=== PATIENT | female | born 1970 | race Caucasian/White ===

== ENCOUNTER 2017-03-26 17:16 | Emergency (ER) | payer BC ==
[~2017-03-26] VITALS: Ht 160 cm; Wt 95.2 kg
[~2017-03-26 17:16] MED LIST: HYDR-3516 PO
[2017-03-26 17:26] VITALS: BP 139/84; PULSE 69; RESP 18; TEMP 98.1; O2SAT 98
--- NOTE | 2017-03-26 17:31 | PD ---
HPI Chief Complaint: Skin Problem Time Seen by Provider: 17:31 Travel History International Travel<30 days: No Contact w/Intl Traveler<30days: No Traveled to known affect area: No History of Present Illness HPI 47-year-old female presents the emergency department with tender erythematous swelling lesion to the anterior abdomen for the past couple of days. Patient states it started with what appeared to be an insect bite is gotten progressively more painful, swollen, and erythematous. There is been no spontaneous drainage. She has no history of MRSA in the past. Patient states pain is a 9 out of 10. She has no fever, chills, or other constitutional symptoms. Patient is allergic to aspirin, ibuprofen, metronidazole, Naprosyn, ofloxacin, penicillin, prednisone, and shrimp. PFSH Past Medical History Diminished Hearing: No Genitourinary: Yes (some urinary incontinence r/t prolapsed uterus) Herniated Disk: Yes (C6, C7) Reproductive: Yes (hx prolapsed uterus) Immunizations Current: Yes Migraines: Yes : 4 Para: 3 Miscarriage: 1 Ovarian Cysts: Yes Past Surgical History Gynecologic Surgery: Yes (LT OVARY REMOVED/"CYST IN UTERINE AREA WHERE OVARY USED TO BE") Tonsillectomy: Yes Family History Family Hypercholesterolemia: Yes (MOTHER) Social History Alcohol Use: No Tobacco Use: No (QUIT AGE 36) Substance Use: No Allergies-Medications (Allergen,Severity, Reaction): Coded Allergies: Aspirin (Verified Allergy, Severe, Anaphylaxis, 03/26/17) Ibuprofen (Verified Allergy, Severe, 03/26/17) Metronidazole (Verified Allergy, Severe, Anaphylaxis, 03/26/17) Naproxen (Verified Allergy, Severe, 03/26/17) Ofloxacin (Verified Allergy, Severe, Anaphylaxis, 03/26/17) Penicillin (Verified Allergy, Severe, Anaphylaxis, 03/26/17) Prednisone (Verified Allergy, Severe, TONGUE SWELLING, 03/26/17) Shrimp (Verified Allergy, Severe, ANAPHYLAXSIS, 03/26/17) Reported Meds & Prescriptions Reported Meds & Active Scripts Active Bactroban Topical (Mupirocin) 22 Gm Cream 1 Applic TOPICAL BID Bactrim DS (Sulfamethoxazole-Trimethoprim) 800-160 Mg Tab 1 Tab PO BID Review of Systems Except as stated in HPI: all other systems reviewed are Neg General / Constitutional: No: Fever Eyes: No: Visual changes HENT: No: Headaches Cardiovascular: No: Chest Pain or Discomfort Respiratory: No: Shortness of Breath Gastrointestinal: No: Abdominal Pain Genitourinary: No: Dysuria Musculoskeletal: No: Pain Skin: Positive Lesions (see history present illness), No Rash Neurologic: No: Weakness Psychiatric: No: Depression Endocrine: No: Polydipsia Hematologic/Lymphatic: No: Easy Bruising Physical Exam Narrative GENERAL: Patient is in mild to moderate distress. SKIN: Warm and dry. Normal color. Normal turgor. Patient has a indurated, erythematous, tender, warm, swollen lesion to the anterior abdomen just to the left of the umbilicus. There is pointing present. There is no spontaneous drainage. This appears consistent with abscess. It measures approximately 2 cm in diameter and raised surface approximately 1 cm. HEAD: Atraumatic. Normocephalic. EYES: Pupils equal and round. No scleral icterus. No injection or drainage. ENT: No nasal bleeding or discharge. Mucous membranes pink and moist. Pharynx is clear. Airway is patent. NECK: Trachea midline. Supple and nontender. CARDIOVASCULAR: Regular rate and rhythm. RESPIRATORY: No accessory muscle use. Clear to auscultation. Breath sounds equal bilaterally. MUSCULOSKELETAL: Extremities without clubbing, cyanosis, or edema. No obvious deformities. NEUROLOGICAL: Awake and alert. No obvious cranial nerve deficits. Motor grossly within normal limits. Five out of 5 muscle strength in the arms and legs. Normal speech. PSYCHIATRIC: Appropriate mood and affect; insight and judgment normal. Data Data Last Documented VS Vital Signs Date Time Temp Pulse Resp B/P Pulse Ox O2 Delivery O2 Flow Rate FiO2 03/26/17 17:26 98.1 69 18 139/84 98 Orders Lidocai-Epi 1%-1:100,000 Inj (Xylocaine- (03/26/17 17:45) Sulfamet-Trimeth Ds 800-160 Mg (Bactrim (03/26/17 17:45) Abscess Culture And Gram Stain (03/26/17 17:35) [facility] Medical Decision Making Medical Screen Exam Complete: Yes Emergency Medical Condition: Yes Differential Diagnosis Cellulitis. Abscess. MRSA. Narrative Course Patient is medically stable at time of exam. I&D of abscess is performed. See procedure note. Patient is given her first dose of Bactrim DS by mouth now. Packing is in place and cultures sent to the lab. Patient is continued on Bactrim DS twice a day 7 days. Patient is given Bactroban ointment to be used as needed twice a day. Patient is to take Tylenol [id number] as needed. Packing should be removed in 2 days. Procedures Procedure Narrative GENERAL: After the risks and benefits were discussed the following procedure was performed: INCISION AND DRAINAGE OF ABSCESS: The area was prepped and was sterilely draped. A subcutaneous wheal of 1% Xylocaine with Epi with a total number 2.5 mL was used to anesthetize the area. The area was properly anesthetized. A number 11 scalpel was used to make a 0.5-cm incision across the area of the abscess. Cultures were obtained. The abscess was drained an irrigated with normal saline. Quarter inch iodoform packing was placed in the wound. Sterile dressing applied. Patient advised to have packing removed in two days. Diagnosis Primary Impression: Abscess of skin of abdomen Referrals: Primary Care Physician Patient Instructions: Abscess Incision and Drainage (ED), General Instructions , MRSA (Methicillin Resistant Staphylococcus Aureus) (ED) Additional Instructions: Patient is given her first dose of Bactrim DS by mouth now. Packing is in place and cultures sent to the lab. Patient is continued on Bactrim DS twice a day 7 days. Patient is given Bactroban ointment to be used as needed twice a day. Patient is to take Tylenol [id number] as needed. Packing should be removed in 2 days. Med/Other Pt SpecificInfo: Prescription(s) given Scripts Mupirocin Topical (Bactroban Topical)22 Gm Cream1 Applic TOPICAL BID #1 TUBE Prov:Julián Wing MD 03/26/17 Sulfamethoxazole-Trimethoprim (Bactrim DS)800-160 Mg Tab1 Tab PO BID #14 TAB Prov:Julián Wing MD 03/26/17 Disposition: 01 DISCHARGE HOME Condition: Stable Kvng Green Mar 26, 2017 17:31
[2017-03-26] MEDS ORDERED: LIDOCAINE 1%/EPINEPHrine 1:100,000 SOLN 20 ML VIAL INFIL ONE (17:45)
[2017-03-26] MEDS ORDERED: SULFAMETHOXAZOLE-TRIMETHOPRIM DS 800-160 MG TAB PO ONE (17:45)
[2017-03-26] MEDS ORDERED: BACT800T5 PO (18:10)
[2017-03-26] MEDS ORDERED: MUPI2%T TOPICAL (18:10)
== END 2017-03-26 18:34 | disposition home or self-care (01) ==
LOC: PHEFT 17:16
DX: L02.211 Cutaneous abscess of abdominal wall (principal); B95.61 Methicillin susceptible Staphylococcus aureus infection as the cause of diseases classified elsewhere; Z87.448 Personal history of other diseases of urinary system; Z87.39 Personal history of other diseases of the musculoskeletal system and connective tissue; Z87.42 Personal history of other diseases of the female genital tract
CPT/HCPCS: 10061; 86403; 87070; 87186; 87205

== ENCOUNTER 2017-06-12 16:29 | Emergency (ER) | payer BC ==
[~2017-06-12] VITALS: Ht 160 cm; Wt 91.0 kg
[~2017-06-12 16:29] MED LIST changes: +BACT800T5 PO; -HYDR-3516 PO; +MUPI2%T TOPICAL
[2017-06-12 16:35] VITALS: BP 159/86; PULSE 69; RESP 16; TEMP 97.6; O2SAT 100
[2017-06-12] MEDS ORDERED: ZITHTAB PO (16:44)
[2017-06-12] MEDS ORDERED: VENTAER INH (16:44)
--- NOTE | 2017-06-12 16:46 | PD ---
HPI Chief Complaint: Cold / Flu Symptoms Time Seen by Provider: 16:39 Travel History International Travel<30 days: No Contact w/Intl Traveler<30days: No Traveled to known affect area: No History of Present Illness HPI Patient comes in complaining of cough and congestion ongoing for approximately 3 weeks. Patient denies any known fevers. Patient has been using over-the- counter medication for symptomatic relief. Patient states that she awoke today she felt like it was moving into her chest she is worried about turning into a pneumonia. Patient denies any nausea, vomiting, abdominal pain, chest pain, shortness of breath, back pain, headache, neck pain, or loss or change in bowel or bladder. Patient denies anything making it worse. Patient reports cough is occasionally productive with yellow phlegm. PFSH Past Medical History Diminished Hearing: No Genitourinary: Yes (some urinary incontinence r/t prolapsed uterus) Herniated Disk: Yes (C6, C7 c9) Reproductive: Yes (hx prolapsed uterus) Immunizations Current: Yes Migraines: Yes ?: Not LMP: 06/07/17 : 4 Para: 3 Miscarriage: 1 Ovarian Cysts: Yes Past Surgical History Gynecologic Surgery: Yes (LT OVARY REMOVED/"CYST IN UTERINE AREA WHERE OVARY USED TO BE") Tonsillectomy: Yes Family History Family Hypercholesterolemia: Yes (MOTHER) Social History Alcohol Use: No Tobacco Use: No (QUIT AGE 36) Substance Use: No Allergies-Medications (Allergen,Severity, Reaction): Coded Allergies: aspirin (Unverified Allergy, Severe, Anaphylaxis, 06/12/17) ibuprofen (Unverified Allergy, Severe, 06/12/17) metronidazole (Unverified Allergy, Severe, Anaphylaxis, 06/12/17) naproxen (Unverified Allergy, Severe, 06/12/17) ofloxacin (Unverified Allergy, Severe, Anaphylaxis, 06/12/17) penicillin G (Unverified Allergy, Severe, Anaphylaxis, 06/12/17) prednisone (Unverified Allergy, Severe, TONGUE SWELLING, 06/12/17) shrimp (Unverified Allergy, Severe, ANAPHYLAXSIS, 06/12/17) Reported Meds & Prescriptions Reported Meds & Active Scripts Active Ventolin Hfa 18 GM Inh (Albuterol Sulfate) 90 Mcg/Act Aer 2 Puff INH Q4-6H PRN Zithromax Z-Joel (Azithromycin) 250 Mg Dspk 250 Mg PO DIRECTED 500 MG (2 tabs) day 1, then 1 tab days 2-5. Bactroban Topical (Mupirocin) 22 Gm Cream 1 Applic TOPICAL BID Bactrim DS (Sulfamethoxazole-Trimethoprim) 800-160 Mg Tab 1 Tab PO BID Review of Systems Except as stated in HPI: all other systems reviewed are Neg Physical Exam Narrative GENERAL: Well-developed, overly nourished, in no acute distress, and non-ill appearing. SKIN: Focused skin assessment warm and dry. HEAD: Atraumatic. Normocephalic. EYES: Pupils equal and round. EOMI. No scleral icterus. No injection or drainage. ENT: No nasal bleeding or discharge. Mucous membranes pink and moist. Tympanic membranes pearly arias bilaterally. Tenderness bilateral maxillary facial sinuses. Posterior pharynx non-erythematous without exudate. Uvula is midline. NECK: Trachea midline. No cervical lymphadenopathy. Supple. No nuclear rigidity. CARDIOVASCULAR: Regular rate and rhythm. No murmur appreciated. RESPIRATORY: No accessory muscle use. No respiratory distress. Clear to auscultation. Breath sounds equal bilaterally. Hacking cough noted on exam. GASTROINTESTINAL: Abdomen soft, non-tender, nondistended, and no guarding. Hepatic and splenic margins not palpable. Normal bowel sounds 4. No pulsatile mass. MUSCULOSKELETAL: No obvious deformities. No clubbing. No cyanosis. No edema. Full range of motion. NEUROLOGICAL: Awake and alert. No obvious cranial nerve deficits. Motor grossly within normal limits. Normal speech. PSYCHIATRIC: Appropriate mood and affect; insight and judgment normal. Data Data Last Documented VS Vital Signs Date Time Temp Pulse Resp B/P (MAP) Pulse Ox O2 Delivery O2 Flow Rate FiO2 06/12/17 16:35 97.6 69 16 159/86 (110) 100 Orders Orders Ed Discharge Order (06/12/17 16:43) [facility] Medical Decision Making Medical Screen Exam Complete: Yes Emergency Medical Condition: Yes Differential Diagnosis Bronchitis, pneumonia, respiratory infection, sinusitis, other Narrative Course Patients symptom complex is consistent with bronchitis. The patient is non-ill appearing and is in no respiratory distress and comfortable. The patient moves air well and oxygen saturations are normal. There is no clinical evidence to suggest pneumonia at this time. Patient was offered x-rays but has declined at this time. Plan of care and management were discussed with the patient who agreed with plan. The patient was instructed to follow up with their physician and instructed to return if worsens, progressively worsening shortness of breath or difficulty breathing, persistent fever, chest pains or discomfort, inability to keep medication or fluids down with or without vomiting, or as needed. Patient in no obvious distress upon re-evaluation. Patient was asked if they wanted to speak to my attending, which the patient did not wish to do at this time. Any questions/concerns in reference to patient diagnosis/condition discussed and clarified prior to patient's discharge. Reinforced sheer importance of close follow up with patient's primary physician or primary care clinic. Instructed patient to return to ED immediately, if symptoms return/ worsen. Patient showed understanding of above instructions. Further instructions and recommendations were detailed in discharge paperwork. Patient ambulated without difficulty out of ED at discharge. Diagnosis Primary Impression: Bronchitis Patient Instructions: Acute Bronchitis (ED), General Instructions Additional Instructions: Follow-up with your primary care physician in 3-5 days for reevaluation. Take all medication as prescribed. Return to the emergency department if symptoms get worse. Med/Other Pt SpecificInfo: Prescription(s) given Scripts Albuterol 18 GM Inh (Ventolin Hfa 18 GM Inh) 90 Mcg/Act Aer 2 PUFF INH Q4-6H Y for COUGH, #1 INHALER 0 Refills Prov: Priscilla Black MD 06/12/17 Azithromycin (Zithromax Z-Joel) 250 Mg Dspk 250 MG PO DIRECTED for Infection, #1 DSPK 0 Refills 500 MG (2 tabs) day 1, then 1 tab days 2-5. Prov: Priscilla Black MD 06/12/17 Disposition: 01 DISCHARGE HOME Condition: Stable Nick Jane Jun 12, 2017 16:46
== END 2017-06-12 16:54 | disposition home or self-care (01) ==
LOC: PHEFT 16:29
DX: J20.9 Acute bronchitis, unspecified (principal); Z87.891 Personal history of nicotine dependence
CPT/HCPCS: 99284

== ENCOUNTER 2017-07-12 09:00 | Emergency (ER) | payer BC ==
[~2017-07-12] VITALS: Ht 160 cm; Wt 89.0 kg
[~2017-07-12 09:00] MED LIST changes: +VENTAER INH; +ZITHTAB PO
[2017-07-12 09:07] VITALS: BP 155/84; PULSE 64; RESP 16; TEMP 97.7; O2SAT 99
[2017-07-12] MEDS ORDERED: AZIT250T3 PO (10:00)
[2017-07-12] MEDS ORDERED: VENTAER INH (10:00)
[2017-07-12] MEDS ORDERED: BENZ100 PO (10:00)
--- NOTE | 2017-07-12 10:00 | PD ---
HPI Chief Complaint: Cold / Flu Symptoms Time Seen by Provider: 09:24 Travel History International Travel<30 days: No Contact w/Intl Traveler<30days: No Traveled to known affect area: No History of Present Illness HPI 47-year-old female here with productive cough 1 month and sore throat times one day. Patient reports she was treated in May for bronchitis. She was put on antibiotics which improved her symptoms. She reports symptoms returned approximately one week ago with a productive cough. She denies fever or chills. She denies shortness of breath. She denies chest pain. Symptom severity is moderate. No alleviating factors. PFSH Past Medical History Medical History: Denies Significant Hx Diminished Hearing: No Genitourinary: Yes (some urinary incontinence r/t prolapsed uterus) Herniated Disk: Yes (C6, C7 c9) Reproductive: Yes (hx prolapsed uterus) Immunizations Current: Yes Migraines: Yes ?: Not : 4 Para: 3 Miscarriage: 1 Ovarian Cysts: Yes Past Surgical History Gynecologic Surgery: Yes (LT OVARY REMOVED/"CYST IN UTERINE AREA WHERE OVARY USED TO BE") Tonsillectomy: Yes Family History Family Hypercholesterolemia: Yes (MOTHER) Social History Alcohol Use: No Tobacco Use: No (QUIT AGE 36) Substance Use: No Allergies-Medications (Allergen,Severity, Reaction): Coded Allergies: aspirin (Unverified Allergy, Severe, Anaphylaxis, 07/12/17) ibuprofen (Unverified Allergy, Severe, 07/12/17) metronidazole (Unverified Allergy, Severe, Anaphylaxis, 07/12/17) naproxen (Unverified Allergy, Severe, 07/12/17) ofloxacin (Unverified Allergy, Severe, Anaphylaxis, 07/12/17) penicillin G (Unverified Allergy, Severe, Anaphylaxis, 07/12/17) prednisone (Unverified Allergy, Severe, TONGUE SWELLING, 07/12/17) shrimp (Unverified Allergy, Severe, ANAPHYLAXSIS, 07/12/17) Reported Meds & Prescriptions Reported Meds & Active Scripts Active No Active Prescriptions or Reported Medications Review of Systems Except as stated in HPI: all other systems reviewed are Neg General / Constitutional: No: Fever Respiratory: Positive: Cough Physical Exam Narrative GENERAL: Well-nourished, well-developed patient. SKIN: Focused skin assessment warm/dry. HEAD: Normocephalic. EYES: No scleral icterus. No injection or drainage. THROAT: Posterior pharyngeal erythema without exudate. No tonsillar hypertrophy. NECK: Supple, trachea midline. No JVD or lymphadenopathy. CARDIOVASCULAR: Regular rate and rhythm without murmurs, gallops, or rubs. RESPIRATORY: Breath sounds equal bilaterally. No accessory muscle use. GASTROINTESTINAL: Abdomen soft, non-tender, nondistended. Data Data Last Documented VS Vital Signs Date Time Temp Pulse Resp B/P (MAP) Pulse Ox O2 Delivery O2 Flow Rate FiO2 07/12/17 09:07 97.7 64 16 155/84 (107) 99 MDM Medical Decision Making Medical Screen Exam Complete: Yes Emergency Medical Condition: Yes Differential Diagnosis Bronchitis, pneumonia, influenza Narrative Course 47-year-old female here with reported productive cough for the last week. Patient reports she has had URI-like symptoms for over a month. She reports she was originally treated with antibiotics approximate one month ago which improved her symptoms. Symptoms returned last week. On exam she has a harsh sounding cough with questionable rhonchi. Patient be treated with azithromycin and antitussives and instructed follow-up with her PCP Diagnosis Primary Impression: Bronchitis Referrals: [facility] Additional Instructions: Take the antibiotics as prescribed. Take cough medication as needed. Stay well hydrated by drinking plenty of fluids. Follow-up with her primary doctor. Return to emergency department if he developed new or worsening symptoms Scripts Benzonatate (Tessalon Perles) 100 Mg Cap 200 MG PO TID Y for COUGH for 5 Days, CAP 0 Refills Prov: Heidi Foley 07/12/17 Albuterol 18 GM Inh (Ventolin Hfa 18 GM Inh) 90 Mcg/Act Aer 2 PUFF INH Q4-6H Y for SHORTNESS OF BREATH, #1 INHALER 0 Refills Prov: Heidi Foley 07/12/17 Azithromycin (Azithromycin) 250 Mg Tab 250 MG PO DIRECTED for Infection, #6 TAB 0 Refills Take 2 tabs (500 mg) on day 1 then 1 tab daily x 4 days. Prov: Heidi Foley 07/12/17 Disposition: 01 DISCHARGE HOME Condition: Stable Heidi Foley Jul 12, 2017 10:00
== END 2017-07-12 10:10 | disposition home or self-care (01) ==
LOC: PHEFT 09:00
DX: J40 Bronchitis, not specified as acute or chronic (principal); J02.9 Acute pharyngitis, unspecified
CPT/HCPCS: 99284